=== PATIENT | male | born 1990 | race Caucasian/White ===

== ENCOUNTER 2020-08-21 18:57 | Emergency (ER) | payer OTHER ==
[2020-08-21 21:15] LABS: HEMOGLOBIN 17.2 gm/dl (14.0-17.5); RED BLOOD COUNT 5.21 M/UL (4.20-5.50); WHITE BLOOD COUNT 9.3 K/UL (4.5-11.0)
[2020-08-21 21:37] LABS: BUN/CREATININE RATIO 18 (0-10)
== END 2020-08-22 | disposition home or self-care (01) ==
LOC: ER1 18:57
PROVIDERS: Physician Assistant Medical
DX: R00.2 Palpitations (principal); R07.89 Other chest pain; R20.2 Paresthesia of skin; I10 Essential (primary) hypertension; F17.210 Nicotine dependence, cigarettes, uncomplicated; Z53.20 Procedure and treatment not carried out because of patient's decision for unspecified reasons
CPT/HCPCS: 71045; 80053; 82550; 82553; 83874; 84439; 84443; 84484; 85025; 85379; 93005; 99285

== ENCOUNTER 2020-10-30 21:47 | Emergency (ER) | payer OTHER ==
[2020-10-31] MEDS ORDERED: LODINE CAP 300300 MG PO (00:17)
== END 2020-10-31 00:44 | disposition home or self-care (01) ==
LOC: ER1 21:47
DX: R09.1 Pleurisy (principal); M54.6 Pain in thoracic spine; F17.210 Nicotine dependence, cigarettes, uncomplicated
CPT/HCPCS: 71046; 99283